=== PATIENT | female | born 1960 | race Caucasian/White ===

== ENCOUNTER → 2017-11-23 | Outpatient (CLI) | payer BC ==
[~2017-11-23] MED LIST: BENTYL10 MG PO; BENTYL20 MG PO; CALCIUM; CLINDAMYCIN HC150 MG PO; CRESTOR20 MG PO; CRESTOR5 MG PO; DEXILANT60 MG PO; IOPAMIDOL 370 MG/ML 200 ML INFUS..BTL INJ ONE; LIPITOR20 MG PO; LISINOPRIL10 MG PO; MAXALT MLT10 MG PO; MULTIVITAMINS1 EAC8; PREVACID30 M1 PO; PREVACID30 MG PO; PRINIVIL10 MG PO; SODIUM CHLORIDE 0.9% 50ML 50 ML ONE
[2017-11-23 15:18] LABS: BLOOD UREA NITROGEN 9 mg/dL (7-26); BUN/CREATININE RATIO 12 (6-25); CREATININE, SERUM 0.73 mg/dL (0.57-1.11); EST GLOMERULAR FILTRATION RATE > 60 ML/MIN (60-)
--- NOTE | 2017-11-23 16:23 | Diagnostic Imaging Report ---
PROCEDURE: CT ABDOMEN AND PELVIS WITH CONTRAST TECHNIQUE: The abdomen and pelvis were scanned utilizing a multidetector helical scanner from the diaphragm to the lesser trochanter after the IV administration of 100 cc of Isovue 370 and the oral administration of water. Coronal and sagittal multiplanar reformations were obtained. Total DLP: 271.33 mGy-cm COMPARISON: CT abdomen pelvis 11/05/2016. INDICATIONS: CHRONS ABD PAIN FINDINGS: LOWER THORAX: Mild dependent atelectasis. HEPATOBILIARY: Diffuse hepatic steatosis. No focal hepatic lesions. Intrahepatic and extrahepatic biliary dilatation secondary to post cholecystectomy reservoir effect. SPLEEN: No splenomegaly. Multiple splenic calcified granulomas. PANCREAS: No focal masses or ductal dilatation. ADRENALS: No adrenal nodules. KIDNEYS/URETERS: No hydronephrosis, stones, or solid mass lesions. Bilateral extrarenal pelvis. PELVIC ORGANS/BLADDER: Unremarkable. PERITONEUM / RETROPERITONEUM: No free air or fluid. LYMPH NODES: No lymphadenopathy. VESSELS: Unremarkable. GI TRACT: No distention or wall thickening. Appendix is normal. BONES AND SOFT TISSUES: Moderate disc space narrowing at L5-S1 with posterior disc osteophyte. Residual disc at S1-S2. Fat containing umbilical hernia. IMPRESSION: 1. No acute abnormalities in the abdomen or pelvis. 2. Unchanged calcified splenic granulomas and diffuse hepatic steatosis. Dictated by: Henrry Chan M.D. on 11/23/2017 at 16:25 Electronically approved by: Henrry Chan M.D. on 11/23/2017 at 16:25
== END ==
LOC: CT 14:38
PROVIDERS: ATTEND Internal Medicine Gastroenterology
DX: R10.9 Unspecified abdominal pain (principal)
CPT/HCPCS: 36415; 74177; 82565; 84520; Q9967

== ENCOUNTER 2017-12-01 12:03 | Observation (INO) | payer BC ==
[~2017-12-01] VITALS: Ht 162.6 cm; Wt 65.0 kg
[~2017-12-01 12:03] MED LIST changes: -IOPAMIDOL 370 MG/ML 200 ML INFUS..BTL INJ ONE; -SODIUM CHLORIDE 0.9% 50ML 50 ML ONE
--- OUTSIDE RECORDS SUMMARY | 2017-12-01 12:06 | XMS REPORT ---
Author Author [facility] Address Unknown Phone Unavailable Care Team Providers Care [employer] Name Role Phone MARINE WINTERS Unavailable Unavailable Problems This patient has no known problems. Allergies, Adverse Reactions, Alerts This patient has no known allergies or adverse reactions. Medications This patient has no known medications. Results Test Description Test Time Test Comments Text Results Atomic Results Result Comments CT ABDOMEN/PELVIS W [place] [address] Patient Name: SELMA JI MR #: [id number] : 1960 Age/Sex: 57/F Req #: [id number] Adm Physician: Ordered by: MARINE WINTERS MD Report #: [id number] Location: CT Room/Bed: Procedure: [id number] CT/CT ABDOMEN/PELVIS W Exam Date: Exam Time: REPORT STATUS: Signed PROCEDURE: CT ABDOMEN AND PELVIS WITH CONTRAST TECHNIQUE: The abdomen and pelvis were scanned utilizing a multidetector helical scanner from the diaphragm to the lesser trochanter after the IV administration of 100 cc of Isovue 370 and the oral administration of water. Coronal and sagittal multiplanar reformations were obtained. Total DLP: 271.33 mGy-cm COMPARISON: CT abdomen pelvis 11/05/2016. INDICATIONS: CHRONS ABD PAIN FINDINGS: LOWER THORAX: Mild dependent atelectasis. HEPATOBILIARY: Diffuse hepatic steatosis. No focal hepatic lesions. Intrahepatic and extrahepatic biliary dilatation secondary to post cholecystectomy reservoir effect. SPLEEN: No splenomegaly. Multiple splenic calcified granulomas. PANCREAS: No focal masses or ductal dilatation. ADRENALS: No adrenal nodules. KIDNEYS/URETERS: No hydronephrosis, stones, or solid mass lesions. Bilateral extrarenal pelvis. PELVIC ORGANS/BLADDER: Unremarkable. PERITONEUM / RETROPERITONEUM: No free air or fluid. LYMPH NODES: No lymphadenopathy. VESSELS: Unremarkable. GI TRACT: No distention or wall thickening. Appendix is normal. BONES AND SOFT TISSUES : Moderate disc space narrowing at L5-S1 with posterior disc osteophyte. Residual disc at S1-S2. Fat containing umbilical hernia. IMPRESSION: 1. No acute abnormalities in the abdomen or pelvis. 2. Unchanged calcified splenic granulomas and diffuse hepatic steatosis. Dictated by: Helga Chan M.D. on 11/23/2017 at 16:25 Electronically approved by: Helga Chan M.D. on 11/23/2017 at 16:25 Dictated By: HELGA CHAN MD [id number] Transcribed By: JASMYN on 11/23/17 1622 COPY TO: MARINE WINTERS MD
[2017-12-01 12:40] LABS: BASOPHILS % 0.9 % (0.0-1.0); EOSINOPHILS # (AUTO) 0.3 (0.0-0.4); EOSINOPHILS % 5.8 % (0.0-6.0); HEMATOCRIT 42.2 % (34.2-44.1); HEMOGLOBIN 14.2 g/dL (12.0-16.0); LYMPHOCYTES # (AUTO) 1.6 (1.0-3.2); LYMPHOCYTES % 36.5 % (18.0-39.1); MEAN CORPUSCULAR HEMOGLOBIN 31.6 pg (28-32); MEAN CORPUSCULAR HGB CONC 33.6 g/dL (31-35); MONOCYTES # (AUTO) 0.5 (0.2-0.8); MONOCYTES % 12.1 % (4.4-11.3); NEUTROPHILS % 44.3 % (38.7-80.0); PLATELET COUNT 344 x10e3/uL (140-360); RED BLOOD COUNT 4.49 x10e6/uL (3.6-5.1); RED CELL DISTRIBUTION WIDTH 13.2 % (11.7-14.4)
[2017-12-01 12:43] LABS: BILIRUBIN,URINE NEGATIVE (NEGATIVE); CLARITY,URINE CLEAR (CLEAR); COLOR,URINE YELLOW (YELLOW); KETONES,URINE NEGATIVE (NEGATIVE); LEUKOCYTE ESTERASE ,URINE NEGATIVE (NEGATIVE); NITRITE,URINE NEGATIVE (NEGATIVE); PROTEIN,URINE DIPSTICK NEGATIVE (NEGATIVE); URINE UROBILINOGEN 0.2 mg/dL (0.2 - 1)
[2017-12-01] MEDS ORDERED: MORPHINE SULFATE 4 MG/ML SYR IV STA (12:48)
[2017-12-01] MEDS ORDERED: SODIUM CHLORIDE 0.9% 1000ML 1,000 ML IV STA (12:48)
[2017-12-01 12:57] LABS: ALANINE AMINOTRANSFERASE 11 IU/L (0-55); ALBUMIN 4.3 g/dL (3.5-5.0); ALBUMIN/GLOBULIN RATIO 1.3 (0.8-2.0); ALKALINE PHOSPHATASE 62 IU/L (40-150); ANION GAP 12.2 mmol/L (8-16); BLOOD UREA NITROGEN 8 mg/dL (7-26); BUN/CREATININE RATIO 11 (6-25); CALCIUM 9.8 mg/dL (8.4-10.2); CARBON DIOXIDE 27 mmol/L (22-29); CHLORIDE 107 mmol/L (98-107); CREATININE, SERUM 0.73 mg/dL (0.57-1.11); EST GLOMERULAR FILTRATION RATE > 60 ML/MIN (60-); GLUCOSE 102 mg/dL (74-118); POTASSIUM 4.2 mmol/L (3.5-5.1); SODIUM 142 mmol/L (136-145)
[2017-12-01] MEDS ORDERED: PROMETHAZINE 12.5MG/ NACL 0.9% 12.5 MG/50 ML BAG IV ONE (13:00)
[2017-12-01 13:07] LABS: EPITHELIAL CELLS,URINE FEW /LPF
[2017-12-01] MEDS ORDERED: MORPHINE SULFATE 2 MG/ML SYR ONE (13:22)
--- NOTE | 2017-12-01 13:50 | Diagnostic Imaging Report ---
PROCEDURE:ABDOMEN COMP INCL UPR OR DECUB INDICATION:Small bowel obstruction COMPARISON:[facility], CT, CT ABDOMEN/PELVIS W, 11/23/2017, 15:56. FINDINGS: Nonobstructive bowel gas pattern. No dilated, air-filled loops of bowel. Moderate amount of retained stool in the colon. No abnormal calcifications overlie the genitourinary system. Calcified splenic granulomas. Cholecystectomy clips. No aggressive lytic lesion. Lung bases are clear. CONCLUSION: Nonobstructive bowel gas pattern with moderate amount of retained stool in the colon. Herb Santana M.D. Dictated by: Herb Santana M.D. on 12/01/2017 at 13:53 Electronically approved by: Herb Santana M.D. on 12/01/2017 at 13:53
[2017-12-01] MEDS ORDERED: SODIUM CHLORIDE 0.9% 1000ML 1,000 ML IV SCH ×2 (14:35→21:45)
[2017-12-01] MEDS ORDERED: PROMETHAZINE 12.5MG/ NACL 0.9% 12.5 MG/50 ML BAG IV PRN ×3 (14:45→21:45)
[2017-12-01] MEDS: MORPHINE SULFATE 2 MG/ML SYR IV PRN ×2 (16:27→20:35)
[2017-12-01] MEDS ORDERED: LISINOPRIL 20 MG TAB PO ONE (20:00)
[2017-12-01] MEDS ORDERED: HYDRALAZINE HCL 20 MG/ML VIAL IV PRN ×2 (21:00→21:45)
[2017-12-01 21:36] VITALS: BP 164/104
[2017-12-01] MEDS: SODIUM CHLORIDE 0.9% 1000ML 1,000 ML IV SCH (21:45)
[2017-12-01 22:58] VITALS: BP 164/104
[2017-12-02] VITALS (7 sets, daily range): BP systolic 125–149; BP diastolic 73–92
[2017-12-02] MEDS ORDERED: PANTOPRAZOLE 40 MG 10ML VIAL IV STA (00:12)
[2017-12-02] MEDS: LEVOFLOXACIN 500MG/D5W 100ML 100 ML IV SCH (00:47)
[2017-12-02] MEDS: METRONIDAZOLE 500MG/NS 100ML 100 ML IV SCH ×5 (01:00→23:27)
[2017-12-02] MEDS: MORPHINE SULFATE 2 MG/ML SYR IV PRN ×5 (01:09→21:32)
[2017-12-02] MEDS: PANTOPRAZOL 40MG/SOD CHL 0.9% 50 ML IV SCH ×5 (02:31→20:45)
[2017-12-02 06:32] LABS: BASOPHILS # (AUTO) 0.1 (0.0-0.1); BASOPHILS % 1.1 % (0.0-1.0); EOSINOPHILS # (AUTO) 0.3 (0.0-0.4); EOSINOPHILS % 6.2 % (0.0-6.0); HEMATOCRIT 38.2 % (34.2-44.1); HEMOGLOBIN 12.8 g/dL (12.0-16.0); LYMPHOCYTES # (AUTO) 2.3 (1.0-3.2); LYMPHOCYTES % 49.6 % (18.0-39.1); MEAN CORPUSCULAR HEMOGLOBIN 32.2 pg (28-32); MEAN CORPUSCULAR HGB CONC 33.5 g/dL (31-35); MONOCYTES # (AUTO) 0.5 (0.2-0.8); MONOCYTES % 11.5 % (4.4-11.3); NEUTROPHILS # (AUTO) 1.5 (2.1-6.9); NEUTROPHILS % 31.4 % (38.7-80.0); PLATELET COUNT 303 x10e3/uL (140-360); RED BLOOD COUNT 3.98 x10e6/uL (3.6-5.1); RED CELL DISTRIBUTION WIDTH 13.4 % (11.7-14.4)
[2017-12-02 07:08] LABS: ALANINE AMINOTRANSFERASE 9 IU/L (0-55); ALBUMIN 3.6 g/dL (3.5-5.0); ALBUMIN/GLOBULIN RATIO 1.4 (0.8-2.0); ALKALINE PHOSPHATASE 50 IU/L (40-150); ANION GAP 11.6 mmol/L (8-16); BLOOD UREA NITROGEN 7 mg/dL (7-26); BUN/CREATININE RATIO 10 (6-25); CALCIUM 9.2 mg/dL (8.4-10.2); CARBON DIOXIDE 26 mmol/L (22-29); CHLORIDE 109 mmol/L (98-107); CREATININE, SERUM 0.71 mg/dL (0.57-1.11); EST GLOMERULAR FILTRATION RATE > 60 ML/MIN (60-); GLUCOSE 107 mg/dL (74-118); POTASSIUM 4.6 mmol/L (3.5-5.1); SODIUM 142 mmol/L (136-145)
[2017-12-02] MEDS: DICYCLOMINE HCL 20 MG TAB PO SCH ×4 (07:52→20:45)
[2017-12-02] MEDS: SODIUM CHLORIDE 0.9% 1000ML 1,000 ML IV SCH (10:25)
[2017-12-02] MEDS: LISINOPRIL 20 MG TAB PO SCH (13:18)
[2017-12-03] VITALS: BP 146/89
[2017-12-03] MEDS: SODIUM CHLORIDE 0.9% 1000ML 1,000 ML IV SCH (01:09)
[2017-12-03] MEDS: LEVOFLOXACIN 500MG/D5W 100ML 100 ML IV SCH (01:09)
[2017-12-03] MEDS: MORPHINE SULFATE 2 MG/ML SYR IV PRN ×3 (02:04→21:10)
[2017-12-03] MEDS: PANTOPRAZOL 40MG/SOD CHL 0.9% 50 ML IV SCH ×2 (02:08→06:09)
[2017-12-03 04:00] VITALS: BP 132/78
[2017-12-03] MEDS: METRONIDAZOLE 500MG/NS 100ML 100 ML IV SCH ×4 (05:16→23:44)
[2017-12-03 08:02] VITALS: BP 156/95
[2017-12-03] MEDS: LISINOPRIL 20 MG TAB PO SCH (09:00)
[2017-12-03] MEDS ORDERED: LISINOPRIL 10 MG TAB PO SCH (09:00)
[2017-12-03] MEDS: DICYCLOMINE HCL 20 MG TAB PO SCH ×4 (09:00→21:10)
[2017-12-03 11:13] LABS: WBC,FECAL (FECAL LACTOFERRIN) NEGATIVE (NEGATIVE)
[2017-12-03 12:00] VITALS: BP 122/76
[2017-12-03 14:50] LABS: C DIFFICILE TOXIN A&B AMP PROB NEGATIVE (NEGATIVE)
[2017-12-03 17:02] VITALS: BP 148/82
[2017-12-03 20:00] VITALS: BP 142/87
[2017-12-04] VITALS: BP 134/81
[2017-12-04] MEDS: LEVOFLOXACIN 500MG/D5W 100ML 100 ML IV SCH (01:00)
[2017-12-04 01:18] VITALS: BP 142/87
[2017-12-04 04:00] VITALS: BP 130/83
[2017-12-04] MEDS: METRONIDAZOLE 500MG/NS 100ML 100 ML IV SCH ×2 (05:44→11:37)
[2017-12-04 06:30] LABS: BASOPHILS % 0.9 % (0.0-1.0); EOSINOPHILS # (AUTO) 0.4 (0.0-0.4); HEMATOCRIT 40.3 % (34.2-44.1); HEMOGLOBIN 13.5 g/dL (12.0-16.0); LYMPHOCYTES # (AUTO) 1.2 (1.0-3.2); LYMPHOCYTES % 27.4 % (18.0-39.1); MEAN CORPUSCULAR HEMOGLOBIN 31.7 pg (28-32); MEAN CORPUSCULAR HGB CONC 33.5 g/dL (31-35); MEAN CORPUSCULAR VOLUME 94.6 fL (81-99); MONOCYTES # (AUTO) 0.6 (0.2-0.8); MONOCYTES % 14.2 % (4.4-11.3); NEUTROPHILS % 47.8 % (38.7-80.0); PLATELET COUNT 314 x10e3/uL (140-360); RED BLOOD COUNT 4.26 x10e6/uL (3.6-5.1); RED CELL DISTRIBUTION WIDTH 13.4 % (11.7-14.4)
[2017-12-04] MEDS: MORPHINE SULFATE 2 MG/ML SYR IV PRN ×2 (06:40→13:26)
[2017-12-04 07:13] LABS: ALANINE AMINOTRANSFERASE 13 IU/L (0-55); ALBUMIN 3.7 g/dL (3.5-5.0); ALBUMIN/GLOBULIN RATIO 1.5 (0.8-2.0); ALKALINE PHOSPHATASE 57 IU/L (40-150); ANION GAP 10.2 mmol/L (8-16); BLOOD UREA NITROGEN 8 mg/dL (7-26); BUN/CREATININE RATIO 11 (6-25); CALCIUM 9.4 mg/dL (8.4-10.2); CARBON DIOXIDE 28 mmol/L (22-29); CHLORIDE 108 mmol/L (98-107); CREATININE, SERUM 0.75 mg/dL (0.57-1.11); EST GLOMERULAR FILTRATION RATE > 60 ML/MIN (60-); GLUCOSE 123 mg/dL (74-118); POTASSIUM 4.2 mmol/L (3.5-5.1); SODIUM 142 mmol/L (136-145)
[2017-12-04] MEDS ORDERED: PANTOPRAZOLE SOD 40 MG TABEC PO SCH (07:30)
[2017-12-04] MEDS: DICYCLOMINE HCL 20 MG TAB PO SCH ×2 (08:04→11:37)
[2017-12-04 08:19] VITALS: BP 139/81
[2017-12-04] MEDS: LISINOPRIL 20 MG TAB PO SCH (08:28)
[2017-12-04 09:29] VITALS: BP 139/81
[2017-12-04 13:15] VITALS: BP 153/87
[2017-12-04] MEDS ORDERED: NORCO 5-325 TA1 EACH PO (13:36)
--- NOTE | 2017-12-04 13:58 | Discharge Summary ---
ADMIT DIAGNOSES 1. Crohn's disease exacerbation. 2. Hypertension. 3. Constipation. DISCHARGE DIAGNOSES 1. Gastroenteritis, resolving. 2. Crohn's disease. 3. Hypertension. 4. Chronic abdominal pain. 5. Constipation, resolving. HOSPITAL COURSE: This is a 57-year-old white woman who was initially admitted to [facility] with a diagnosis of Crohn's disease exacerbation. This woman does have a known history of underlying Crohn's disease. In fact, at home she was on Apresa, Imuran and Humira injections. 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 During this hospital stay, the patient improved with supportive care as well as intravenous antibiotics, namely metronidazole and levofloxacin. Of note during this hospitalization, the patient's white blood cell count stayed within normal limits. Sedimentation rate was also normal at level of 8. C-reactive protein was normal also with level of less than 0.3. Moreover, the patient's stool lactoferrin was negative. The patient's stool was checked for Clostridium difficile toxin and B antigen and it was also negative. The patient's chemistries on discharge were stable. The patient also had a urinalysis done during this hospitalization and it was not consistent with urinary tract infection. On admission, the patient underwent abdominal x-ray which revealed a moderate amount of retained stool in the colon. On November 23, 2017, the patient underwent a CT of the abdomen and pelvis with contrast which revealed diffuse hepatic steatosis, otherwise it was unremarkable. DISCHARGE MEDICATIONS: 1. Dicyclomine 30 mg q.i.d. 2. Lisinopril 20 mg daily. 3. Pantoprazole 40 mg daily. 4. Filion 5/325 one p.o. b.i.d. p.r.n. pain, 20 prescribed. FOLLOWUP INSTRUCTIONS: The patient is instructed to follow up with primary care physician, namely Dr. Jay Winters, within 1-2 weeks. It was explained to the patient that narcotic use could worsen her constipation issues. JASON GARAY MD Job#: [id number] GH cc: JAY WINTERS MD [facility]
== END 2017-12-04 14:15 | disposition home or self-care (01) ==
LOC: ER 12:03 → UNDOADMOB 15:57 → ERHOLD 15:57 → IMCU 21:00 → MED/SURG 12-02 14:16
DX: K50.90 Crohn's disease, unspecified, without complications (principal); K52.9 Noninfective gastroenteritis and colitis, unspecified; I10 Essential (primary) hypertension; E78.5 Hyperlipidemia, unspecified; K57.90 Diverticulosis of intestine, part unspecified, without perforation or abscess without bleeding; K59.00 Constipation, unspecified
CPT/HCPCS: 36415 ×3; 80053 ×3; 81001; 81025; 83630; 83993; 85025 ×3; 85651; 86140; 87045; 87177; 87493; 99284; G0378 ×4; J1956 ×2; J2270 ×4; J2550; J7030 ×3; S0164

== ENCOUNTER → 2018-05-18 | Day surgery (SDC) | payer BC ==
[~2018-05-18] MED LIST changes: +CRESTOR10 MG; +DEXAMETHASONE SOD PHOS 10 MG/1 ML VIAL ONE; +FENTANYL CITRATE/PF 100MCG/2 ML INJ ONE; +IOPAMIDOL 200 MG/ML 20 ML VIAL IT ONE; +LIALDA1.2 GM PO; +LIDOCAINE HCL 1% 30ML-PF VIAL ONE; +MIDAZOLAM HCL 2 MG/2 ML VIAL ONE; +NORCO 5-325 TA1 EACH PO; +REGLAN
[2018-05-18 08:39] VITALS: BP 114/87
== END | disposition home or self-care (01) ==
LOC: OR 05:56
PROVIDERS: ATTEND Physical Medicine & Rehabilitation Pain Medicine
DX: M54.16 Radiculopathy, lumbar region (principal); M47.816 Spondylosis without myelopathy or radiculopathy, lumbar region; I10 Essential (primary) hypertension; K50.90 Crohn's disease, unspecified, without complications; G43.909 Migraine, unspecified, not intractable, without status migrainosus
CPT/HCPCS: 64483; 64484; J1100; J2001; J2250; Q9967; 77003

== ENCOUNTER → 2018-06-03 | Day surgery (SDC) | payer BC ==
[~2018-06-03] MED LIST changes: -DEXAMETHASONE SOD PHOS 10 MG/1 ML VIAL ONE; +EPHEDRINE SULFATE INJ 50 MG/10 ML SYR ONE; +GLUCAGON FOR INJ 1 MG VIAL ONE; +HYOSCYAMINE SULFATE 0.5 MG/ML INJ ONE; -IOPAMIDOL 200 MG/ML 20 ML VIAL IT ONE; -LIDOCAINE HCL 1% 30ML-PF VIAL ONE; +LIDOCAINE HCL 2% LOCAL INJ 5 ML SDV VIAL INJ ONE; +PROMETHAZINE HCL (IM) 25 MG/ML VIAL ONE; +PROPOFOL IV EMULSION 10 MG/ML 50 ML VIAL ONE; +SODIUM CHLORIDE 0.9% 50ML 50 ML ONE
[2018-06-03 21:58] LABS: WBC,FECAL (FECAL LACTOFERRIN) NEGATIVE (NEGATIVE)
--- NOTE | 2018-06-04 01:44 | Operative Report ---
DATE OF PROCEDURE: June 03, 2018 REFERRING PHYSICIAN: Dr. Angelique Winters. PROCEDURES PERFORMED 1. Esophagogastroduodenoscopy with biopsies. 2. Colonoscopy with polypectomy and biopsies. INDICATIONS FOR ESOPHAGOGASTRODUODENOSCOPY: Dyspepsia. INDICATIONS FOR COLONOSCOPY: Lower abdominal pain, diarrhea, rectal bleeding, and history of colon polyps. MEDICATION: Patient was done under MAC. Please see anesthesiologist's note. ESOPHAGOGASTRODUODENOSCOPY: With patient in left lateral decubitus position, a flexible fiberoptic Olympus gastroscope was introduced into the esophagus under direct visualization without any difficulty. There were some patchy erythema noted in the distal esophagus. The scope was then advanced with ease into the stomach, traversing a small sliding hiatal hernia. Mucosa overlying the antrum and the body revealed some patchy erythema and low-grade to moderate edema and biopsies were obtained and sent to stain for H. pylori. Pylorus appeared to be of normal contour and shape. It was intubated with ease and the scope was advanced all the way to the 2nd portion of the duodenum. Biopsies were obtained from the proximal 2nd portion and the duodenal bulb to rule out sprue. The scope was then withdrawn back into the stomach and retroflexed and mucosa overlying the fundus and the cardia appeared to be within normal limits. The scope was then straightened out. It was subsequently withdrawn. Patient tolerated the procedure well. IMPRESSION 1. Distal esophagitis, mild. 2. Small sliding hiatal hernia. 3. Gastritis biopsied. Biopsies sent to stain for Helicobacter pylori. 4. Rule out sprue. PLAN: Follow up histology. Continue with Dexilant 60 mg 1 p.o. q.a.m. and a.c. Add Carafate 2 gram p.o. a.c. b.i.d. Continue Reglan 10 mg 1 p.o. a.c., t.i.d., and at bedtime. COLONOSCOPY: Patient was then turned around and after adequate lubrication of the anal canal, a flexible fiberoptic Olympus colonoscope was inserted into the rectum with ease and advanced all the way to the cecum. Mucosa overlying the cecum appeared to be within normal limits. The ileocecal valve was intubated and the scope was advanced into the terminal ileum. Biopsies were obtained. The scope was then withdrawn back into the colon. It was then withdrawn slowly. An approximately 1.5-cm sessile flat polypoid lesion was noted in the distal ascending colon, and that was removed per piecemeal electrocautery. It was hemoclipped x2. There were some patchy areas of erythema noted in the transverse colon as well as the rest of the left colon and random biopsies were obtained. Four polyps were hot biopsied from the sigmoid colon. Similar inflammatory changes were noted in the rectum and biopsies were obtained. The scope was then retroflexed into the distal rectum and small internal hemorrhoids were noted, none of which was actively bleeding. The scope was then straightened out. It was subsequently withdrawn after securing an adequate stool specimen that was sent for the appropriate stool studies. Patient tolerated the procedure well. IMPRESSION 1. Approximately 1.5-cm sessile flat lesion in the distal ascending colon removed per piecemeal, snare electrocautery, and polypectomy site hemoclipped x2. 2. Mild patchy colitis. Random biopsies obtained. 3. Sigmoid colon polyps x4, hot biopsied. 4. Proctitis, mild, biopsies obtained. 5. Internal hemorrhoids, none actively bleeding. PLAN: Follow up histology. Follow up stool studies. Initiate BSL #3 one p.o. daily. Increase Bentyl to 20 mg 1 p.o. q.i.d. Timing of followup colonoscopy pending pathology report. Job#: [id number] DAWN cc:DR ANGELIQUE WINTERS
[2018-06-04 12:35] LABS: C DIFFICILE TOXIN A&B AMP PROB **POSITIVE** (NEGATIVE)
== END | disposition home or self-care (01) ==
LOC: OR 14:40
PROVIDERS: ATTEND Internal Medicine Gastroenterology
DX: K29.70 Gastritis, unspecified, without bleeding (principal); D12.2 Benign neoplasm of ascending colon; K52.9 Noninfective gastroenteritis and colitis, unspecified; K20.9 Esophagitis, unspecified; K21.9 Gastro-esophageal reflux disease without esophagitis; K44.9 Diaphragmatic hernia without obstruction or gangrene; K62.89 Other specified diseases of anus and rectum; K64.8 Other hemorrhoids; R63.4 Abnormal weight loss; I10 Essential (primary) hypertension; I45.10 Unspecified right bundle-branch block; R51 Headache; F41.9 Anxiety disorder, unspecified; Z01.810 Encounter for preprocedural cardiovascular examination; E78.00 Pure hypercholesterolemia, unspecified; Z88.8 Allergy status to other drugs, medicaments and biological substances
CPT/HCPCS: 43239; 45380; 45384; 45385; 83630; 83993; 87045; 87177; 87328; 87493; 93005; J1610; J1980; J2001; J2250; J2550; 45378

== ENCOUNTER → 2018-08-31 | Day surgery (SDC) | payer BC ==
[~2018-08-31] MED LIST changes: +BUPIVACAINE 0.25% 30ML SDV INJ ONE; -EPHEDRINE SULFATE INJ 50 MG/10 ML SYR ONE; -GLUCAGON FOR INJ 1 MG VIAL ONE; -HYOSCYAMINE SULFATE 0.5 MG/ML INJ ONE; +IOPAMIDOL 200 MG/ML 20 ML VIAL IT ONE; +LIDOCAINE HCL 1% 30ML-PF VIAL ONE; -PROMETHAZINE HCL (IM) 25 MG/ML VIAL ONE; +PROPOFOL IV EMULSION 10 MG/ML 20 ML VIAL ONE; -PROPOFOL IV EMULSION 10 MG/ML 50 ML VIAL ONE; -SODIUM CHLORIDE 0.9% 50ML 50 ML ONE; +TRIAMCINOLONE ACET 40 MG/ML VIAL ONE
[2018-08-31 07:12] VITALS: BP 134/84
== END | disposition home or self-care (01) ==
LOC: OR 05:00
PROVIDERS: ATTEND Physical Medicine & Rehabilitation Pain Medicine
DX: M46.1 Sacroiliitis, not elsewhere classified (principal); G57.00 Lesion of sciatic nerve, unspecified lower limb; M62.838 Other muscle spasm; M47.816 Spondylosis without myelopathy or radiculopathy, lumbar region; M54.16 Radiculopathy, lumbar region; I10 Essential (primary) hypertension; K21.9 Gastro-esophageal reflux disease without esophagitis; K58.9 Irritable bowel syndrome, unspecified; I45.10 Unspecified right bundle-branch block; Z88.8 Allergy status to other drugs, medicaments and biological substances
CPT/HCPCS: 20552; G0260; J2001; J2250; J3301; Q9967

== ENCOUNTER 2018-12-20 18:29 | Emergency (ER) | payer BC ==
[~2018-12-20] VITALS: Ht 162.6 cm; Wt 64.9 kg
[~2018-12-20 18:29] MED LIST changes: -BUPIVACAINE 0.25% 30ML SDV INJ ONE; -FENTANYL CITRATE/PF 100MCG/2 ML INJ ONE; -IOPAMIDOL 200 MG/ML 20 ML VIAL IT ONE; -LIDOCAINE HCL 1% 30ML-PF VIAL ONE; -LIDOCAINE HCL 2% LOCAL INJ 5 ML SDV VIAL INJ ONE; -MIDAZOLAM HCL 2 MG/2 ML VIAL ONE; -PROPOFOL IV EMULSION 10 MG/ML 20 ML VIAL ONE; -TRIAMCINOLONE ACET 40 MG/ML VIAL ONE
[2018-12-20] MEDS ORDERED: MORPHINE SULFATE 5 MG/ML VIAL IV ONE (19:00)
[2018-12-20] MEDS ORDERED: PROMETHAZINE 12.5MG/ NACL 0.9% 12.5 MG/50 ML BAG IV ONE (19:00)
[2018-12-20] MEDS ORDERED: SODIUM CHLORIDE 0.9% 1000ML 1,000 ML IV SCH (19:00)
[2018-12-20 19:15] LABS: BASOPHILS # (AUTO) 0.1 (0.0-0.1); EOSINOPHILS # (AUTO) 0.2 (0.0-0.4); EOSINOPHILS % 2.2 % (0.0-6.0); HEMATOCRIT 47.3 % (34.2-44.1); HEMOGLOBIN 16.1 g/dL (12.0-16.0); LYMPHOCYTES # (AUTO) 2.2 (1.0-3.2); LYMPHOCYTES % 24.4 % (18.0-39.1); MEAN CORPUSCULAR HEMOGLOBIN 30.8 pg (28-32); MEAN CORPUSCULAR VOLUME 90.6 fL (81-99); MONOCYTES # (AUTO) 1.1 (0.2-0.8); MONOCYTES % 12.1 % (4.4-11.3); NEUTROPHILS # (AUTO) 5.4 (2.1-6.9); PLATELET COUNT 411 x10e3/uL (140-360); RED BLOOD COUNT 5.22 x10e6/uL (3.6-5.1); RED CELL DISTRIBUTION WIDTH 12.9 % (11.7-14.4)
[2018-12-20] MEDS ORDERED: MORPHINE SULFATE INJ 4 MG/ML INJ 1ML IV ONE (19:15)
[2018-12-20 19:17] LABS: BILIRUBIN,URINE NEGATIVE (NEGATIVE); CLARITY,URINE SL CLOUDY (CLEAR); COLOR,URINE YELLOW (YELLOW); KETONES,URINE NEGATIVE (NEGATIVE); LEUKOCYTE ESTERASE ,URINE NEGATIVE (NEGATIVE); NITRITE,URINE NEGATIVE (NEGATIVE); PROTEIN,URINE DIPSTICK TRACE (NEGATIVE); URINE UROBILINOGEN 0.2 mg/dL (0.2 - 1)
[2018-12-20 19:31] LABS: BACTERIA,URINE MODERATE /HPF; EPITHELIAL CELLS,URINE MANY /LPF
[2018-12-20 19:34] LABS: ALANINE AMINOTRANSFERASE 16 IU/L (0-55); ALBUMIN 4.5 g/dL (3.5-5.0); ALBUMIN/GLOBULIN RATIO 1.4 (0.8-2.0); ALKALINE PHOSPHATASE 85 IU/L (40-150); AMYLASE 78 U/L (25-125); ANION GAP 14.4 mmol/L (8-16); BLOOD UREA NITROGEN 14 mg/dL (7-26); BUN/CREATININE RATIO 17 (6-25); CALCIUM 10.1 mg/dL (8.4-10.2); CARBON DIOXIDE 27 mmol/L (22-29); CHLORIDE 96 mmol/L (98-107); CREATININE, SERUM 0.83 mg/dL (0.57-1.11); EST GLOMERULAR FILTRATION RATE > 60 ML/MIN (60-); GLUCOSE 147 mg/dL (74-118); LIPASE 32 U/L (8-78); POTASSIUM 3.4 mmol/L (3.5-5.1); SODIUM 134 mmol/L (136-145)
[2018-12-20 21:13] VITALS: BP 130/96
== END 2018-12-20 21:19 | disposition home or self-care (01) ==
LOC: ER 18:29
DX: E86.0 Dehydration (principal); R10.13 Epigastric pain; R10.12 Left upper quadrant pain; Z88.8 Allergy status to other drugs, medicaments and biological substances; Z91.018 Allergy to other foods; I10 Essential (primary) hypertension; E78.5 Hyperlipidemia, unspecified; K50.90 Crohn's disease, unspecified, without complications; Z90.49 Acquired absence of other specified parts of digestive tract; Z87.891 Personal history of nicotine dependence; Z82.49 Family history of ischemic heart disease and other diseases of the circulatory system
CPT/HCPCS: 36415; 80053; 81001; 82150; 83690; 85025; 93005; 99284; J2270; J2550; J7030

== ENCOUNTER → 2019-01-18 | Outpatient (CLI) | payer BC ==
--- NOTE | 2019-01-22 08:39 | Diagnostic Imaging Report ---
#[id number] - [id number] #BILATERAL DIGITAL SCREENING MAMMOGRAM WITH CAD: 01/18/2019 CLINICAL: Routine screening. Comparison is made to exams dated: 12/14/2016 mammogram and 12/04/2015 mammogram - [facility]. Current study contains 5 films. There are scattered fibroglandular elements in both breasts. Current study was also evaluated with a Computer Aided Detection (CAD) system. Benign appearing calcifications are noted bilaterally. No significant masses, calcifications, or other findings are seen in either breast. IMPRESSION: BENIGN There is no mammographic evidence of malignancy. A 1 year screening mammogram is recommended. The patient will be notified by letter of the results. MAXWELL CHOW M.D. ct/penrad:01/19/2019 16:39:07 Medical Insurance Coding Specialist: Myriam DUARTE)([place]), [facility] letter sent: Normal Exam Mammogram BI-RADS: 2 Benign
== END ==
LOC: MAMMO 13:46
DX: Z12.31 Encounter for screening mammogram for malignant neoplasm of breast (principal)
CPT/HCPCS: 77067